=== PATIENT | male | born 1955 | race African-American/Black ===

== ENCOUNTER 2017-06-20 09:50 | Outpatient (CLI) | payer BC, OTHER | END 2017-06-20 09:51 | disposition home or self-care (01) | LOC: BICRAD 09:50 | PROVIDERS: ATTEND Family Medicine | DX: J32.9 Chronic sinusitis, unspecified (principal) | CPT/HCPCS: 71046 ==

== ENCOUNTER 2018-02-04 09:56 | Outpatient (CLI) | payer BC ==
--- NOTE | 2018-02-04 10:49 | RAD ---
TWO VIEWS OF THE CHEST: COMPARISON: 12/15/2005. HISTORY: Cough for 3 weeks. Bronchitis. FINDINGS: Two views of the chest show normal sized cardiomediastinal silhouette. There is no evidence of consol idation, mass, or pleural effusion. Degenerative changes are seen in the spine. IMPRESSION: No evidence of acute cardiopulmonary disease. POS: [facility]
== END 2018-02-04 09:57 | disposition home or self-care (01) ==
LOC: BICRAD 09:56
PROVIDERS: ATTEND Allergy & Immunology
DX: R05 Cough (principal)
CPT/HCPCS: 71046

== ENCOUNTER 2019-10-14 11:09 | Inpatient (IN) | payer BC, OTHER ==
[2019-10-14] MEDS ORDERED: Azithromycin 500 MG VIAL ONE (11:56)
[2019-10-14] MEDS ORDERED: Dexamethasone 4 mg/ml Vial ONE (11:56)
[2019-10-14 12:17] LABS: #Basophils 0.1 thou/uL (0.0-0.2); #Lymphocytes 0.3 thou/uL (1.20-3.40); #Monocytes 0.6 thou/uL (0.11-0.59); %Basophils 1.4 % (0.0-1.0); %Eosinophils 0.2 % (0.0-10.0); %Lymphocytes 4.2 % (21.0-51.0); %Monocytes 7.5 % (0.0-10.0); %Neutrophils 86.7 % (42.0-75.0); Hemoglobin 15.3 g/dL (14.0-18.0); Mean Corpuscular HGB CONC 33.4 g/dL (32.0-36.0); Mean Corpuscular Hemoglobin 34.9 pg (27.0-31.0); Mean Platelet Volume 6.9 fL (7.4-10.4); Platelet Count 185 thou/uL (130-400); RBC Distribution Width 12.2 % (11.5-14.5); Red Blood Cell (RBC) Count 4.39 mill/uL (4.70-6.10); White Blood Cell (WBC) Count 8.1 thou/uL (4.8-10.8)
[2019-10-14 12:25] LABS: Anion Gap 15 mmol/L (10-20); BUN (Urea Nitrogen) 17 mg/dL (8.4-25.7); Calc. Creatinine Clearance 0 mL/min (70-130); Carbon Dioxide 34 mmol/L (23-31); Chloride 87 mmol/L (98-107); Estimated GFR-MDRD 74; Sodium 134 mmol/L (136-145)
[2019-10-14 12:26] LABS: ALT (SGPT) 41 U/L (8-55); AST (SGOT) 50 U/L (5-34); Albumin 4.2 g/dL (3.4-4.8); Alkaline Phosphatase 41 U/L (40-110); Bilirubin, Total 0.6 mg/dL (0.2-1.2); Calcium 9.1 mg/dL (7.8-10.44); Globulin 3.9 g/dL (2.4-3.5); Glucose 163 mg/dL (80-115); Protein, Total 8.1 g/dL (5.8-8.1); Prothrombin Time 13.1 sec (12.0-14.7)
[2019-10-14 12:27] LABS: PTT 32.2 sec (22.9-36.1)
[2019-10-14 12:31] LABS: Potassium 2.4 mmol/L (3.5-5.1)
--- NOTE | 2019-10-14 12:39 | RAD ---
PORTABLE CHEST 1 VIEW: Date: 10/14/2019 Time: 1150 hours HISTORY: COVID-19 positive and shortness of breath. FINDINGS/IMPRESSION: Comparison made with exam of 10/12/2019. The heart size is stable. No lobar consolidation, pneumothoraces, chalino pulmonary edema, or large eff usions are seen. POS: [facility]
[2019-10-14 12:47] LABS: CKMB 1.3 ng/mL (0-6.6)
[2019-10-14] MEDS ORDERED: Potassium Chloride 20 MEQ TAB ONE (13:45)
[2019-10-14] MEDS ORDERED: cloNIDine 0.1 MG TAB PO PRN (15:25)
[2019-10-14] MEDS ORDERED: Ondansetron PF 4 MG/2 ML Vial IVP PRN (15:25)
[2019-10-14] MEDS ORDERED: hydrALAZINE 20 MG/ML VIAL SLOW IVP PRN (15:25)
[2019-10-14] MEDS ORDERED: Ondansetron ODT 4 MG TAB PO PRN (15:25)
[2019-10-14 15:45] VITALS: BMI 38.7
--- NOTE | 2019-10-14 17:33 | HP ---
PRIMARY CARE PHYSICIAN: Corby Claudio MD CHIEF COMPLAINT: Cough and shortness of breath. HISTORY OF PRESENT ILLNESS: Mr. Cox is a pleasant 64-year-old gentleman, who has a history of chronic bronchitis. He says that about a week ago or last , he started having symptoms of cough and wheezing and shortness of breath. He thought it was his bronchitis or allergies as he typically has this problem every year. His symptoms seem to get worse and then he started having some fever and as a result, he felt it was probably a good idea to get tested for COVID-19. He says he did get tested and the test did come back positive on Saturday. He says that he was quarantining at home, but then started having fever and he says the shortness of breath got progressively worse to the point where he could walk just a few feet and get extremely winded. He denies any chest pain. No abdominal pain, no nausea, no vomiting, no diarrhea, but as a result of the symptoms, he decided to come to the ER. He was found to be hypoxic on room air and chest x-ray was consistent with the findings typical of COVID pneumonia and he is being admitted for further evaluation. REVIEW OF SYSTEMS: All systems were reviewed and are negative except for that mentioned in the history of present illness. PAST MEDICAL HISTORY: Significant for hypertension, hyperlipidemia, and chronic bronchitis. PAST SURGICAL HISTORY: He says that he has had cataract surgery. ALLERGIES: NO KNOWN DRUG ALLERGIES. SOCIAL HISTORY: He is a nonsmoker and nondrinker. He denies any drug use. He is and would like to be a full code. FAMILY HISTORY: He said his mother had colon cancer. CURRENT MEDICATIONS: 1. Pravastatin 40 mg at bedtime. 2. Naprosyn 500 mg daily. 3. Lansoprazole 30 mg p.o. daily. 4. Terazosin 10 mg at bedtime. 5. Amlodipine 10 mg daily. 6. Spironolactone/hydrochlorothiazide 25/25 daily. 7. Promethazine with codeine 5 mL q.6h as needed. PHYSICAL EXAMINATION: GENERAL: He is awake and alert. He appears to be in no acute distress. He is well developed and well nourished. VITAL SIGNS: Blood pressure was 113/72, heart rate 107, respiratory rate of 18, temperature is 99.6, and O2 saturation was 88% on room air. HEENT: Pupils are equal, round, and reactive to light. Extraocular muscles are intact. His sclerae are anicteric. Throat, no erythema, no exudates. NECK: No adenopathy. No bruits. LUNGS: He has some rales, very fine crackles. No rhonchi. No wheezing. CARDIOVASCULAR: He has a normal S1 and S2. There is no S3 or S4. No murmurs, clicks, or rubs. ABDOMEN: Obese. It is soft, nontender, and nondistended. Positive for bowel sounds. No rebound. No guarding. EXTREMITIES: There is no clubbing or cyanosis. No edema. No calf tenderness. No joint effusions. NEUROLOGIC: Grossly nonfocal. SKIN AND INTEGUMENT: He does have some chronic venous stasis changes primarily on the left lower extremity with some thickening and darkening of the skin, but otherwise no other lesions. LABORATORY DATA: White blood cell count was 8.1, hemoglobin 15.3, hematocrit is 45.9, and platelet count was 185. INR is 1.0. Chemistry; sodium 134, potassium 2.4, chloride is 87, CO2 of 34, BUN of 17, creatinine 1.2, and glucose is 163. Troponin is 0.030. ASSESSMENT: This is a pleasant 64-year-old gentleman, who presents to the emergency room with acute hypoxic respiratory failure due to COVID-19 pneumonia. He also has hypokalemia as well. He will be admitted to the medical COVID unit, started on IV Decadron as well as azithromycin and Rocephin. I talked to him about the treatment called remdesivir and asked him would he be willing to try this if he were deemed a candidate. I did discuss that this is a medication that is being released for compassionate use and has not been FDA approved for this particular reason, but has been shown to have some efficacy and talked about the risk of liver and kidney injury, and he said he would be willing. We will also place monitor his inflammatory markers. 1. Hypokalemia. This will need to be replaced. I suspect this is possibly due to poor oral intake in addition to diuretic use. 2. The patient will be placed on deep venous thrombosis as well as gastrointestinal prophylaxis. Job ID: [id number]
[2019-10-14] MEDS: cefTRIAXone\\ROCEPHIN 1 GM in Sodium Chloride 0.9% 100 ML IVPB SCH (17:47)
[2019-10-14] MEDS: Benzonatate 100 MG CAP PO PRN (22:08)
[2019-10-15] MEDS: Benzonatate 100 MG CAP PO PRN ×3 (04:30→16:07)
[2019-10-15 06:17] LABS: #Lymphocytes 0.6 thou/uL (1.20-3.40); #Monocytes 0.6 thou/uL (0.11-0.59); #Neutrophils 4.7 thou/uL (1.40-6.50); %Basophils 0.1 % (0.0-1.0); %Lymphocytes 10.4 % (21.0-51.0); %Monocytes 9.4 % (0.0-10.0); %Neutrophils 80.1 % (42.0-75.0); Hemoglobin 14.4 g/dL (14.0-18.0); Mean Corpuscular HGB CONC 32.4 g/dL (32.0-36.0); Mean Corpuscular Hemoglobin 33.7 pg (27.0-31.0); Mean Platelet Volume 6.9 fL (7.4-10.4); Platelet Count 191 thou/uL (130-400); RBC Distribution Width 12.2 % (11.5-14.5); Red Blood Cell (RBC) Count 4.28 mill/uL (4.70-6.10); White Blood Cell (WBC) Count 5.8 thou/uL (4.8-10.8)
[2019-10-15 06:43] LABS: ALT (SGPT) 41 U/L (8-55); AST (SGOT) 48 U/L (5-34); Albumin 3.9 g/dL (3.4-4.8); Alkaline Phosphatase 38 U/L (40-110); Anion Gap 15 mmol/L (10-20); BUN (Urea Nitrogen) 16 mg/dL (8.4-25.7); Bilirubin, Total 0.4 mg/dL (0.2-1.2); CRP (Inflammatory) 8.38 mg/dL (= or < 0.5); Calc. Creatinine Clearance 166 mL/min (70-130); Calcium 9.2 mg/dL (7.8-10.44); Carbon Dioxide 35 mmol/L (23-31); Chloride 92 mmol/L (98-107); Estimated GFR-MDRD Greater than 90; Globulin 3.9 g/dL (2.4-3.5); Glucose 129 mg/dL (80-115); Protein, Total 7.8 g/dL (5.8-8.1); Sodium 139 mmol/L (136-145)
[2019-10-15 06:46] LABS: Potassium 2.5 mmol/L (3.5-5.1)
[2019-10-15] MEDS ORDERED: Potassium Chloride 20 MEQ TAB PO SCH ×3 (07:30→19:00)
[2019-10-15] MEDS: Enoxaparin Sodium 40 MG/0.4 ML SYRINGE SC SCH (08:06)
[2019-10-15] MEDS: Dexamethasone 4 mg/ml Vial SLOW IVP SCH (08:07)
[2019-10-15] MEDS: Azithromycin 500 MG in Sodium Chloride 0.9% 250 ML 250 ML IVPB SCH (11:13)
[2019-10-15 14:11] LABS: Potassium 2.9 mmol/L (3.5-5.1)
[2019-10-15] MEDS: cefTRIAXone\\ROCEPHIN 1 GM in Sodium Chloride 0.9% 100 ML IVPB SCH (15:00)
--- NOTE | 2019-10-15 17:40 | PDOC.HOSPP ---
- Subjective Encounter Date: 10/15/19 Encounter Time: 16:15 Subjective: Mr Cox is seen this afternoon as a follow up for a positive Covid test and hypoxia. He says he is feeling somewhat better except for the persistent cough. He denies any chest pain. Has some shortness of breath with exertion and his oxygen demands increased to have him at 4L NC. - Objective Vital Signs & Weight: Vital Signs (12 hours) Temp Pulse Resp BP Pulse Ox 10/15/19 16:00 98.4 F 82 18 112/78 92 L 10/15/19 12:42 98 F 73 16 124/71 91 L 10/15/19 08:00 98.2 F 92 18 121/76 91 L Weight Weight 318 lb 12.8 oz I&O: 10/14/19 10/15/19 10/16/19 06:59 06:59 06:59 Intake Total 1000 Balance 1000 Result Diagrams: 10/15/19 05:50 10/15/19 13:39 Hospitalist ROS - Medication Medications: Active Medications Generic Name Dose Route Start Last Admin Trade Name Freq PRN Reason Stop Dose Admin Benzonatate 100 mg 10/14/19 15:25 10/15/19 16:07 Tessalon PO 100 mg Q6H PRN Administration Cough Dexamethasone 6 mg 10/15/19 09:00 10/15/19 08:07 Decadron SLOW IVP 6 mg DAILY KIMBERLYN Administration Enoxaparin Sodium 40 mg 10/15/19 09:00 10/15/19 08:06 Lovenox SC 40 mg 0900 KIMBERLYN Administration Azithromycin 500 mg/ Sodium 250 mls @ 250 mls/hr 10/15/19 12:00 10/15/19 11: 13 Chloride IVPB 250 mls 1200 KIMBERLYN Administration Ceftriaxone Sodium 1 gm/ 100 mls @ 200 mls/hr 10/14/19 16:00 10/15/19 15:00 Sodium Chloride IVPB 100 mls 1600 KIMBERLYN Administration Pantoprazole Sodium 40 mg 10/15/19 09:00 10/15/19 08:07 Protonix PO 40 mg DAILY KIMBERLYN Administration - Exam General Appearance: NAD, awake alert Eye: PERRL Neck: supple, symmetric, no JVD Heart: RRR, no murmur, no gallops, no rubs Respiratory: CTAB, no wheezes, no rales, no ronchi Gastrointestinal: soft, non-tender, non-distended, normal bowel sounds Psychiatric: normal affect, normal behavior Hosp A/P (1) COVID-19 virus detected Code(s): U07.1 - COVID-19 Status: Acute (2) Hypoxia Code(s): R09.02 - HYPOXEMIA Status: Acute (3) Hypokalemia Code(s): E87.6 - HYPOKALEMIA Status: Acute - Plan Covid positive:Continue Remdesivir, Azithromax and Dexamethasone. Hypoxia: CTAB, on 4L NC, no acute distress, continue monitoring oxygen needs Hypokalemia: potassium replaced, will reheck potassium again in a few hours Patient pleased with his progress, prn antitussives available if needed for cough
[2019-10-15] MEDS ORDERED: Magnesium 2 GM/50 ML 2 GM in Premix Bag 1 BAG IVPB SCH (19:00)
[2019-10-16] MEDS: Benzonatate 100 MG CAP PO PRN ×3 (04:56→19:52)
[2019-10-16 05:45] LABS: #Lymphocytes 0.9 thou/uL (1.20-3.40); #Monocytes 0.6 thou/uL (0.11-0.59); #Neutrophils 5.7 thou/uL (1.40-6.50); %Basophils 0.1 % (0.0-1.0); %Eosinophils 0.2 % (0.0-10.0); %Lymphocytes 12.8 % (21.0-51.0); %Monocytes 8.4 % (0.0-10.0); %Neutrophils 78.6 % (42.0-75.0); Hemoglobin 14.9 g/dL (14.0-18.0); Mean Corpuscular HGB CONC 31.6 g/dL (32.0-36.0); Mean Corpuscular Hemoglobin 33.4 pg (27.0-31.0); Mean Platelet Volume 6.7 fL (7.4-10.4); Platelet Count 223 thou/uL (130-400); RBC Distribution Width 12.3 % (11.5-14.5); Red Blood Cell (RBC) Count 4.47 mill/uL (4.70-6.10); White Blood Cell (WBC) Count 7.3 thou/uL (4.8-10.8)
[2019-10-16 06:03] LABS: ALT (SGPT) 52 U/L (8-55); AST (SGOT) 48 U/L (5-34); Albumin 3.8 g/dL (3.4-4.8); Alkaline Phosphatase 41 U/L (40-110); Anion Gap 11 mmol/L (10-20); BUN (Urea Nitrogen) 16 mg/dL (8.4-25.7); Bilirubin, Total 0.4 mg/dL (0.2-1.2); CRP (Inflammatory) 6.97 mg/dL (= or < 0.5); Calc. Creatinine Clearance 175 mL/min (70-130); Carbon Dioxide 36 mmol/L (23-31); Chloride 96 mmol/L (98-107); Estimated GFR-MDRD Greater than 90; Globulin 3.8 g/dL (2.4-3.5); Glucose 117 mg/dL (80-115); Magnesium 2.2 mg/dL (1.6-2.6); Protein, Total 7.6 g/dL (5.8-8.1); Sodium 140 mmol/L (136-145)
[2019-10-16 06:12] LABS: Potassium 2.9 mmol/L (3.5-5.1)
[2019-10-16] MEDS ORDERED: Potassium Chloride 20 MEQ TAB PO SCH (07:00)
[2019-10-16] MEDS: Potassium Chloride 20 MEQ TAB PO SCH ×2 (08:40→17:15)
[2019-10-16] MEDS: Enoxaparin Sodium 40 MG/0.4 ML SYRINGE SC SCH (08:41)
[2019-10-16] MEDS: Dexamethasone 4 mg/ml Vial SLOW IVP SCH (08:41)
[2019-10-16] MEDS: Acetaminophen 325 MG TAB PO PRN ×2 (09:08→19:52)
[2019-10-16] MEDS: Azithromycin 500 MG in Sodium Chloride 0.9% 250 ML 250 ML IVPB SCH (11:09)
--- NOTE | 2019-10-16 14:34 | PDOC.HOSPP ---
- Subjective Encounter Date: 10/16/19 Encounter Time: 11:00 Subjective: breathing better but still has dry cough is needing nasal canula Oxygen has exertional sob - Objective Vital Signs & Weight: Vital Signs (12 hours) Temp Pulse Resp BP Pulse Ox 10/16/19 11:24 98.8 F 91 20 107/69 96 10/16/19 09:00 100.7 F H 119 H 18 115/74 92 L 10/16/19 04:00 99.1 F 97 18 112/68 92 L Weight Weight 318 lb 12.8 oz I&O: 10/15/19 10/16/19 10/17/19 06:59 06:59 06:59 Intake Total 1350 Balance 1350 Result Diagrams: 10/16/19 05:26 10/16/19 05:26 Hospitalist ROS - Medication Medications: Active Medications Generic Name Dose Route Start Last Admin Trade Name Freq PRN Reason Stop Dose Admin Acetaminophen 650 mg 10/14/19 15:25 10/16/19 09:08 Tylenol PO 650 mg Q4H PRN Administration Headache/Fever/Mild Pain (1-3) Benzonatate 100 mg 10/14/19 15:25 10/16/19 11:09 Tessalon PO 100 mg Q6H PRN Administration Cough Dexamethasone 6 mg 10/15/19 09:00 10/16/19 08:41 Decadron SLOW IVP 6 mg DAILY KIMBERLYN Administration Enoxaparin Sodium 40 mg 10/15/19 09:00 10/16/19 08:41 Lovenox SC 40 mg 0900 KIMBERLYN Administration Azithromycin 500 mg/ Sodium 250 mls @ 250 mls/hr 10/15/19 12:00 10/16/19 11: 09 Chloride IVPB 250 mls 1200 KIMBERLYN Administration Ceftriaxone Sodium 1 gm/ 100 mls @ 200 mls/hr 10/14/19 16:00 10/15/19 15:00 Sodium Chloride IVPB 100 mls 1600 KIMBERLYN Administration Remdesivir 100 Mg In 250 mls @ 250 mls/hr 10/15/19 18:30 10/15/19 17:41 Sodium Chloride 0.9 IV 10/18/19 19:29 250 mls % 230 Ml Q24H KIMBERLYN Administration Pantoprazole Sodium 40 mg 10/15/19 09:00 10/16/19 08:41 Protonix PO 40 mg DAILY KIMBERLYN Administration Potassium Chloride 40 meq 10/16/19 08:00 10/16/19 08:40 K-Dur PO 40 meq BID-WM KIMBERLYN Administration - Exam General Appearance: awake alert Eye: PERRL, anicteric sclera ENT: no oropharyngeal lesions, moist mucosa Neck: supple, no JVD Heart: RRR, no murmur Respiratory: no wheezes, no rales, rhonchi Gastrointestinal: soft, non-tender, non-distended, normal bowel sounds Extremities: no cyanosis, no edema Neurological: cranial nerve grossly intact, no focal deficits Psychiatric: normal affect, A&O x 3 Hosp A/P (1) Pneumonia due to COVID-19 virus Code(s): U07.1 - COVID-19; J12.89 - OTHER VIRAL PNEUMONIA Status: Acute (2) Acute respiratory failure with hypoxia Code(s): J96.01 - ACUTE RESPIRATORY FAILURE WITH HYPOXIA Status: Acute (3) Obesity Code(s): E66.9 - OBESITY, UNSPECIFIED Status: Chronic Qualifiers: Obesity classification: adult class 2 (BMI 35 - 39.9) Body mass index: BMI 38.0-38.9 - Plan is on remdesivir, steroids and nasal canula O2 nebs, may dc antibiotics to lie down either prone or onto lateral sides will get cxr in am prognosis guarded
[2019-10-16] MEDS: Albuterol 200 PUFF (6.7GM INHALER) INH SCH (18:44)
[2019-10-17] MEDS: Albuterol 200 PUFF (6.7GM INHALER) INH SCH ×4 (00:24→18:11)
[2019-10-17 05:20] LABS: #Lymphocytes 0.8 thou/uL (1.20-3.40); #Monocytes 0.6 thou/uL (0.11-0.59); %Eosinophils 0.2 % (0.0-10.0); %Lymphocytes 9.8 % (21.0-51.0); Hemoglobin 14.6 g/dL (14.0-18.0); Mean Corpuscular HGB CONC 32.5 g/dL (32.0-36.0); Mean Corpuscular Hemoglobin 34.5 pg (27.0-31.0); Mean Platelet Volume 6.8 fL (7.4-10.4); Platelet Count 237 thou/uL (130-400); RBC Distribution Width 12.3 % (11.5-14.5); Red Blood Cell (RBC) Count 4.25 mill/uL (4.70-6.10); White Blood Cell (WBC) Count 8.5 thou/uL (4.8-10.8)
[2019-10-17 05:37] LABS: ALT (SGPT) 43 U/L (8-55); AST (SGOT) 37 U/L (5-34); Albumin 3.7 g/dL (3.4-4.8); Alkaline Phosphatase 40 U/L (40-110); Anion Gap 14 mmol/L (10-20); BUN (Urea Nitrogen) 13 mg/dL (8.4-25.7); Bilirubin, Total 0.5 mg/dL (0.2-1.2); CRP (Inflammatory) 10.12 mg/dL (= or < 0.5); Calc. Creatinine Clearance 180 mL/min (70-130); Calcium 8.6 mg/dL (7.8-10.44); Carbon Dioxide 31 mmol/L (23-31); Chloride 99 mmol/L (98-107); Estimated GFR-MDRD Greater than 90; Globulin 3.8 g/dL (2.4-3.5); Glucose 118 mg/dL (80-115); Protein, Total 7.5 g/dL (5.8-8.1); Sodium 141 mmol/L (136-145)
[2019-10-17 05:41] LABS: Potassium 2.9 mmol/L (3.5-5.1)
[2019-10-17] MEDS ORDERED: Potassium Chloride 40 MEQ in Sodium Chloride 0.9% 250 ML 250 ML IVPB SCH (06:30)
[2019-10-17] MEDS: Enoxaparin Sodium 40 MG/0.4 ML SYRINGE SC SCH (07:47)
[2019-10-17] MEDS: Benzonatate 100 MG CAP PO PRN ×2 (07:48→16:44)
[2019-10-17] MEDS: Potassium Chloride 20 MEQ TAB PO SCH ×2 (07:48→16:44)
[2019-10-17] MEDS: Dexamethasone 4 mg/ml Vial SLOW IVP SCH (07:48)
--- NOTE | 2019-10-17 12:33 | PDOC.HOSPP ---
- Subjective Encounter Date: 10/17/19 Encounter Time: 10:00 Subjective: cough is slightly better, its mostly dry is amb in room, is lying down on lateral sides now - Objective Vital Signs & Weight: Vital Signs (12 hours) Temp Pulse Resp BP BP Pulse Ox 10/17/19 07:50 98.3 F 102 H 20 146/78 H 92 L 10/17/19 04:28 98.9 F 90 20 138/85 92 L Weight Weight 318 lb 12.8 oz I&O: 10/16/19 10/17/19 10/18/19 06:59 06:59 06:59 Intake Total 1350 1280 Balance 1350 1280 Result Diagrams: 10/17/19 04:48 10/17/19 04:48 Hospitalist ROS - Medication Medications: Active Medications Generic Name Dose Route Start Last Admin Trade Name Freq PRN Reason Stop Dose Admin Acetaminophen 650 mg 10/14/19 15:25 10/16/19 19:52 Tylenol PO 650 mg Q4H PRN Administration Headache/Fever/Mild Pain (1-3) Albuterol Sulfate 2 puff 10/16/19 19:00 10/17/19 06:43 Proventil Hfa INH 2 puff [id number] KIMBERLYN Administration Benzonatate 100 mg 10/14/19 15:25 10/17/19 07:48 Tessalon PO 100 mg Q6H PRN Administration Cough Dexamethasone 6 mg 10/15/19 09:00 10/17/19 07:48 Decadron SLOW IVP 6 mg DAILY KIMBERLYN Administration Enoxaparin Sodium 40 mg 10/15/19 09:00 10/17/19 07:47 Lovenox SC 40 mg 09 KIMBERLYN Administration Remdesivir 100 Mg In 250 mls @ 250 mls/hr 10/15/19 18:30 10/16/19 17:15 Sodium Chloride 0.9 IV 10/18/19 19:29 250 mls % 230 Ml Q24H KIMBERLYN Administration Pantoprazole Sodium 40 mg 10/15/19 09:00 10/17/19 07:48 Protonix PO 40 mg DAILY KIMBERLYN Administration Potassium Chloride 40 meq 10/16/19 08:00 10/17/19 07:48 K-Dur PO 40 meq BID-WM KIMBERLYN Administration - Exam General Appearance: awake alert Eye: PERRL, anicteric sclera ENT: no oropharyngeal lesions, moist mucosa Neck: supple, no JVD Heart: RRR, no murmur Respiratory: no wheezes, no rales, rhonchi Gastrointestinal: soft, non-tender, non-distended, normal bowel sounds Extremities: no cyanosis, no edema Neurological: cranial nerve grossly intact, no focal deficits Psychiatric: normal affect, A&O x 3 Hosp A/P (1) Pneumonia due to COVID-19 virus Code(s): U07.1 - COVID-19; J12.89 - OTHER VIRAL PNEUMONIA Status: Acute (2) Acute respiratory failure with hypoxia Code(s): J96.01 - ACUTE RESPIRATORY FAILURE WITH HYPOXIA Status: Acute (3) Obesity Code(s): E66.9 - OBESITY, UNSPECIFIED Status: Chronic Qualifiers: Obesity classification: adult class 2 (BMI 35 - 39.9) Body mass index: BMI 38.0-38.9 - Plan is on remdesivir, steroids and nasal canula O2 nebs to lie down either prone or onto lateral sides cxr today dc plan likely after completing remdesivr, will need home O2 for dc prognosis guarded
--- NOTE | 2019-10-17 13:48 | RAD ---
EXAM: CHEST ONE VIEW, PORTABLE: 10/17/19 HISTORY: Follow-up COVID-19 pneumonia. COMPARISON: 10/14/19. FINDINGS: Progressive bilateral alveolar and ground glass opacity changes bilaterally including the right upper lobe, right lower lobe, and left mid and lower lung zones evidence for worsening pneumonia. IMPRESSION: Evidence for worsening bilateral COVID-19 pneumonia. POS: [facility]
--- NOTE | 2019-10-17 17:36 | CON ---
DATE OF CONSULTATION: 10/17/2019 REASON FOR CONSULTATION: COVID pneumonia. HISTORY OF PRESENT ILLNESS: A 64-year-old with history of hyperlipidemia, obesity, hypertension, who for about 7 days before admission developed cough, fever, generalized malaise, weakness. He called his doctor, had a test for COVID, which was positive this past Saturday, 4 days before admission, who was sent home, but deteriorated and on Saturday, came back, was admitted at this time. PHYSICAL EXAMINATION: VITAL SIGNS: Initial findings, BP 113/72, pulse 107, respiratory rate 18, temperature 99.6, O2 saturations were 88 on room air and 94 on 3L oxygen. GENERAL: The patient was oriented, nontoxic. RESPIRATORY: Showed clear breath sounds as described in the note by the ER physician. No wheezing or crackles. Remainder of the examination was not remarkable. LABORATORY DATA: Initial findings also included white cell count 8.1, hemoglobin 15, platelets 185 with 86% neutrophils. Total lymphocyte of 300. D-dimer 0.27 and sodium 134, potassium 2.4, creatinine 1.2, AST 50, albumin 4.2. Initial ferritin was 7300 and initial CRP was 8.38. He had diffuse bilateral infiltrates. He has been started on Decadron and Remdesivir. He is feeling a little better now. Denies headaches, still short of breath at the slightest movement, intermittent coughing spells, not as frequent as before. No chest pain. No sputum production. No abdominal pain or diarrhea. No genitourinary symptoms. No joint symptoms or skin disorder. PAST MEDICAL HISTORY: Hyperlipidemia, hypertension, obesity, degenerative joint disease, anal fissure. SOCIAL HISTORY: Retired. Never smoker. ALLERGIES: NONE. MEDICATIONS: 1. Pravachol. 2. Naproxen. 3. Lansoprazole. 4. Terazosin. 5. Norvasc. 6. Spironolactone. 7. Hydrochlorothiazide. 8. Augmentin. 9. Promethazine. 10. Currently, he is also on Decadron, Remdesivir protocol. Today is the third day. PHYSICAL EXAMINATION: VITAL SIGNS: T-max 100.7 yesterday and is now 98.4. O2 sats started 92 and they are around 90 and 93 on nasal cannula O2 at 4 L. It has been at 4L since admission. His BP 130/80. He is breathing anywhere from 20-26 per minute. SKIN: Exam shows some evidence of stasis dermatitis, peripheral IV access. No Goodrich catheter. No lymphadenopathy. HEENT: Not remarkable. NECK: Supple. LUNGS: With a few inspiratory crackles and scattered areas in the lower segments of right and left lungs. HEART: S1, S2. Regular rate without murmurs. ABDOMEN: Slightly distended, but not tender, soft. No ascites or organomegaly. No genital abnormalities. EXTREMITIES: Osteoarthrosis in knees and ankles. No edema. Pulses 1+ dorsalis pedis. Plantar responses are flexor. NEUROLOGICAL: Nonfocal. Cognitive function appears to be intact. LABORATORY DATA: The latest values of labs, sodium 141, potassium 2.9. Transaminases, mild elevation of AST. The ferritin is down to 5700. CRP is up to 10 and D-dimer is stable at 0.27. ASSESSMENT: Hyperlipidemia, obesity, hypertension with COVID pneumonia, severe. Continue Remdesivir protocol, enoxaparin and dexamethasone oxygen supplementation. Monitor inflammatory markers and D-dimer. Job ID: [id number]
[2019-10-17] MEDS: Acetaminophen 325 MG TAB PO PRN (21:17)
[2019-10-18] MEDS: Albuterol 200 PUFF (6.7GM INHALER) INH SCH ×4 (01:10→19:16)
[2019-10-18 06:20] LABS: Band 1 % (5-11); Hemoglobin 15.6 g/dL (14.0-18.0); Hypochromia SLIGHT = 6-15 cells (100X) (0-5/hpf); Lymphocytes 16 % (21-51); MDiff Complete? YES; Macrocytosis SLIGHT = 6-15 cells (100X) (0-5/hpf); Mean Corpuscular HGB CONC 33.4 g/dL (32.0-36.0); Mean Corpuscular Hemoglobin 35.6 pg (27.0-31.0); Mean Platelet Volume 6.9 fL (7.4-10.4); Monocytes 6 % (0-10); Neutrophil 77 % (42-75); Platelet Count 262 thou/uL (130-400); Platelet Morphology Comment Appears Adequate; RBC Distribution Width 12.4 % (11.5-14.5); Red Blood Cell (RBC) Count 4.38 mill/uL (4.70-6.10); White Blood Cell (WBC) Count 8.6 thou/uL (4.8-10.8)
[2019-10-18 06:22] LABS: ALT (SGPT) 42 U/L (8-55); AST (SGOT) 38 U/L (5-34); Albumin 3.8 g/dL (3.4-4.8); Alkaline Phosphatase 41 U/L (40-110); Anion Gap 16 mmol/L (10-20); BUN (Urea Nitrogen) 13 mg/dL (8.4-25.7); Bilirubin, Total 0.6 mg/dL (0.2-1.2); CRP (Inflammatory) 12.55 mg/dL (= or < 0.5); Calc. Creatinine Clearance 193 mL/min (70-130); Carbon Dioxide 29 mmol/L (23-31); Chloride 99 mmol/L (98-107); Estimated GFR-MDRD Greater than 90; Globulin 4.2 g/dL (2.4-3.5); Glucose 114 mg/dL (80-115); Potassium 3.6 mmol/L (3.5-5.1); Sodium 140 mmol/L (136-145)
[2019-10-18] MEDS: Potassium Chloride 20 MEQ TAB PO SCH ×2 (07:48→16:49)
[2019-10-18] MEDS: Benzonatate 100 MG CAP PO PRN ×3 (07:48→20:36)
[2019-10-18] MEDS: Enoxaparin Sodium 40 MG/0.4 ML SYRINGE SC SCH (07:48)
[2019-10-18] MEDS: Dexamethasone 4 mg/ml Vial SLOW IVP SCH (07:48)
[2019-10-18] MEDS: Apixaban 5 MG TAB PO SCH ×2 (09:11→20:36)
--- NOTE | 2019-10-18 15:31 | DIS ---
DATE OF ADMISSION: 10/14/2019 DATE OF DISCHARGE: 10/18/2019 DISCHARGE DISPOSITION: To home. PRIMARY DISCHARGE DIAGNOSIS: COVID-19 pneumonia with acute respiratory failure with hypoxia on 3 L nasal cannula. SECONDARY DISCHARGE DIAGNOSES: Obesity, benign prostatic hypertrophy, dyslipidemia, gastroesophageal reflux disease, hypertension. PROCEDURES DONE DURING HOSPITALIZATION: The patient has had chest x-ray done, which showed bilateral patchy infiltrates consistent with COVID-19 pneumonia. Blood cultures x2, no growth. Hemoglobin and hematocrit 15 and 46, platelet count 262. PT, INR and PTT within normal limits. Serial D-dimer peaked up to 0.42. Ferritin initially was 7316, discharge ferritin is 5452. CRP was 8.38 on admission, at discharge is 12.5, BUN 13, creatinine 0.7, AST 38, ALT 42, alkaline phosphatase 41, total bilirubin 0.6. DISCHARGE MEDICATIONS: 1. Dexamethasone 6 mg p.o. daily for another six days. 2. Lansoprazole 30 mg p.o. daily. 3. Eliquis 5 mg p.o. twice daily for a total of 15 days to prevent thrombotic complications with COVID-19 virus. 4. Albuterol inhaler q.6 hourly p.r.n. 5. Norvasc 10 mg p.o. daily. 6. Pravastatin 40 mg p.o. at bedtime. 7. Terazosin 10 mg p.o. daily. 8. Tessalon Perles 100 mg p.o. 3 times daily p.r.n. ALLERGIES: NO KNOWN DRUG ALLERGIES. INPATIENT CONSULT: Dr. Osorio for Infectious Disease. DISCHARGE PLAN: The patient to follow up with primary care physician in 1 week. BRIEF COURSE DURING HOSPITALIZATION: The patient initially got admitted on 13 of October with complaints of dry cough and shortness of breath. He has had COVID-19 test done on Saturday prior to arrival here, which was positive. His chest x-ray and clinical exam were consistent with COVID-19 pneumonia along with acute hypoxic respiratory failure. He was placed on oxygen by nasal cannula. He has had four doses of remdesivir and the patient was also on dexamethasone 6 mg IV daily. The patient is wanting to go home today. He was given prescriptions for Eliquis for 2 weeks to prevent thrombotic complications along with dexamethasone for 6 days and albuterol inhaler. The patient has been advised to call EMS if he were to decompensate at home including any new complaints along with shortness of breath. Case Management consultation was requested for home oxygen arrangement. Please note, I have seen and examined the patient on the day of discharge. He is otherwise hemodynamically stable. He is eating well. He is also advised to sleep on the lateral side as he cannot sleep prone due to big belly. Job ID: [id number]
[2019-10-18] MEDS: Acetaminophen 325 MG TAB PO PRN (21:37)
[2019-10-19] MEDS: Albuterol 200 PUFF (6.7GM INHALER) INH SCH ×3 (01:30→12:27)
[2019-10-19 06:09] LABS: ALT (SGPT) 40 U/L (8-55); AST (SGOT) 32 U/L (5-34); Albumin 3.8 g/dL (3.4-4.8); Alkaline Phosphatase 41 U/L (40-110); Anion Gap 14 mmol/L (10-20); BUN (Urea Nitrogen) 13 mg/dL (8.4-25.7); Bilirubin, Total 0.8 mg/dL (0.2-1.2); CRP (Inflammatory) 19.26 mg/dL (= or < 0.5); Calc. Creatinine Clearance 177 mL/min (70-130); Calcium 9.2 mg/dL (7.8-10.44); Carbon Dioxide 32 mmol/L (23-31); Chloride 99 mmol/L (98-107); Estimated GFR-MDRD Greater than 90; Globulin 4.1 g/dL (2.4-3.5); Glucose 123 mg/dL (80-115); Potassium 3.5 mmol/L (3.5-5.1); Protein, Total 7.9 g/dL (5.8-8.1); Sodium 141 mmol/L (136-145)
[2019-10-19 06:14] LABS: Band 19 % (5-11); Eosinophils 1 % (0-10); Hemoglobin 15.2 g/dL (14.0-18.0); Lymphocytes 7 % (21-51); MDiff Complete? YES; Mean Corpuscular Hemoglobin 33.1 pg (27.0-31.0); Mean Platelet Volume 6.9 fL (7.4-10.4); Monocytes 5 % (0-10); Neutrophil 68 % (42-75); Platelet Count 321 thou/uL (130-400); Platelet Morphology Comment Appears Adequate; RBC Distribution Width 12.6 % (11.5-14.5); White Blood Cell (WBC) Count 8.7 thou/uL (4.8-10.8)
[2019-10-19] MEDS: Apixaban 5 MG TAB PO SCH (07:48)
[2019-10-19] MEDS: Dexamethasone 4 mg/ml Vial SLOW IVP SCH (07:48)
[2019-10-19] MEDS: Potassium Chloride 20 MEQ TAB PO SCH (07:48)
[2019-10-19 08:51] VITALS: BP 115/81; TEMP 99.6
--- NOTE | 2019-10-19 09:29 | PDOC.HOSPP ---
- Subjective Encounter Date: 10/19/19 Encounter Time: 11:30 Subjective: Patient was being discharged on home O2 yesterday at his request. Became more tachypneic into the 30s last night with tachycardia. Didn't feel bad or SOB but was convinced to stay overnight to be observed. Tachypnea improved today, now in low 20s, no increase WOB on my exam, and tachycardia intermitent in low 100s. Patient determined to go home. States he understands the risks of Covid possibly deteriorating in the future but would like to try managing this at home. Agreed to return to the ER immediately should his symptoms worsen. - Objective Vital Signs & Weight: Vital Signs (12 hours) Temp Pulse Resp BP BP Pulse Ox 10/19/19 08:00 99.6 F 115 H 24 H 115/81 98 10/19/19 04:15 98.8 F 106 H 26 H 128/73 94 L 10/18/19 23:47 99.1 F 114 H 26 H 129/74 94 L 10/18/19 21:40 120 H 36 H 90 L Weight Weight 318 lb 12.8 oz I&O: 10/18/19 10/19/19 10/20/19 06:59 06:59 06:59 Intake Total 610 Output Total 250 Balance 360 Result Diagrams: 10/19/19 05:34 10/19/19 05:34 Hospitalist ROS - Review of Systems Constitutional: denies: fever, chills Respiratory: reports: cough. denies: shortness of breath, SOB with excertion Cardiovascular: denies: chest pain, palpitations, orthopnea Gastrointestinal: denies: nausea, vomiting, abdominal pain Neurological: denies: weakness - Medication Medications: Active Medications Generic Name Dose Route Start Last Admin Trade Name Freq PRN Reason Stop Dose Admin Acetaminophen 650 mg 10/14/19 15:25 10/18/19 21:37 Tylenol PO 650 mg Q4H PRN Administration Headache/Fever/Mild Pain (1-3) Albuterol Sulfate 2 puff 10/16/19 19:00 10/19/19 07:48 Proventil Hfa INH 2 puff [id number] KIMBERLYN Administration Apixaban 5 mg 10/18/19 09:00 10/19/19 07:48 Eliquis PO 5 mg BID KIMBERLYN Administration Benzonatate 100 mg 10/14/19 15:25 10/18/19 20:36 Tessalon PO 100 mg Q6H PRN Administration Cough Pantoprazole Sodium 40 mg 10/15/19 09:00 10/19/19 07:48 Protonix PO 40 mg DAILY KIMBERLYN Administration Potassium Chloride 40 meq 10/16/19 08:00 10/19/19 07:48 K-Dur PO 40 meq BID-WM KIMBERLYN Administration - Exam General Appearance: NAD, awake alert ENT: moist mucosa Neck: supple Heart: RRR, no murmur, no gallops, no rubs Heart - other findings: mild tachycardia Respiratory: CTAB, no wheezes, no rales, no ronchi Respiratory - other findings: no increased WOB or tachypnea on my exam Gastrointestinal: soft, non-tender, non-distended, normal bowel sounds Psychiatric: normal affect, normal behavior, A&O x 3 Hosp A/P (1) Acute respiratory failure with hypoxia Code(s): J96.01 - ACUTE RESPIRATORY FAILURE WITH HYPOXIA Status: Acute (2) Pneumonia due to COVID-19 virus Code(s): U07.1 - COVID-19; J12.89 - OTHER VIRAL PNEUMONIA Status: Acute (3) Obesity Code(s): E66.9 - OBESITY, UNSPECIFIED Status: Chronic Qualifiers: Obesity classification: adult class 2 (BMI 35 - 39.9) Body mass index: BMI 38.0-38.9 - Plan finished remdesivir, on steroids and nasal canula O2 nebs to lie down either prone or onto lateral sides patient will be discharged home on home O2, needs to follow up with PCP or respiratory clinic in 1 week
[2019-10-19] MEDS ORDERED: Dexamethasone 4 MG TAB PO SCH (09:30)
[2019-10-19] MEDS: Benzonatate 100 MG CAP PO PRN (09:48)
--- NOTE | 2019-10-19 20:44 | DIS ---
DATE OF ADMISSION: 10/14/2019 DATE OF DISCHARGE: 10/19/2019 PRIMARY CARE PHYSICIAN: Sri Mishra. REASON FOR ADMISSION: COVID pneumonia with hypoxia DIAGNOSES AT DISCHARGE: 1. Acute respiratory failure with hypoxia. 2. Pneumonia due to COVID-19 virus. 3. Obesity. PROCEDURES: None. CONSULTATION: Infectious Disease, Dr. Osorio. SUMMARY OF HOSPITAL COURSE: This is a 64-year-old male with a history of chronic bronchitis, who presented after testing positive for COVID-19 and having worsening shortness of breath and was found to be hypoxic in the emergency room, was admitted to the hospital, was given steroids, was given azithromycin and was eventually given a course of treatment of remdesivir. The patient was stable in the hospital. During hospitalization, he continued to require 4 L of nasal cannula, but did not have any shortness of breath on that. He had persistent, but stable cough. The patient eventually requested that he would like to go home. We were able to set up home oxygen for him the day before discharge. He did develop some tachypnea in the evening, up to 40 breaths per minute, although he stated he did not have any shortness of breath and did not feel bad when he had it, and he was convinced to the stay overnight for further observation. He also had mild tachycardia in the low 100s. The patient's tachypnea improved. He was in the low 20s on the day of discharge. He has had no increased work of breathing, stated he did not feel short of breath and was eager to go home. We did discuss with him the risks of deterioration with COVID and he stated he would come immediately to the emergency room should he starts feeling worse. Also discussed with him that he should try and sleep laterally on his side or on his belly if he is able to. DISCHARGE MANAGEMENT: Discharged home. ACTIVITY: As tolerated. DIET: Healthy heart, low-sodium diet. EQUIPMENT: Supplies oxygen 4 L nasal cannula. FOLLOWUP: Follow up with primary care physician in 1 week. DISCHARGE MEDICATIONS: 1. Albuterol inhaler 2 puffs every 6 hours as needed, one inhaler dispensed. 2. Eliquis 5 mg twice a day for 2 weeks, 30 tablets dispensed. 3. Tessalon Perles as needed for cough, 30 capsules dispensed. 4. Dexamethasone 6 mg daily for six more days. 5. Lansoprazole 30 mg daily, 30 capsules dispensed. 6. Amlodipine 10 mg daily. 7. Pravastatin 40 mg at night. 8. Terazosin 10 mg daily. Arranging the details of this discharge took 35 minutes. Job ID: [id number]
[2019-10-20] MEDS ORDERED: Dexamethasone 4 MG TAB PO SCH (08:00)
--- NOTE | 2019-10-20 16:31 | EKG ---
Test Reason : Blood Pressure : / mmHG Vent. Rate : 107 BPM Atrial Rate : 107 BPM P-R Int : 156 ms QRS Dur : 104 ms QT Int : 362 ms P-R-T Axes : 031 -52 031 degrees QTc Int : 483 ms Sinus tachycardia Left atrial enlargement Left axis deviation Inferior infarct , age undetermined Abnormal ECG Confirmed by FLORENCE MOREJON, AVERY Biswas ([id number]), sound editor MARITO FRANCO ([id number]) on 10/20/2019 4:31:08 PM Referred By: Confirmed By:AVERY HENRIQUEZ MD
== END 2019-10-19 13:03 | disposition home or self-care (01) | DRG 177 ==
LOC: ERS 11:09 → T4-B 12:53
PROVIDERS: ADMIT Internal Medicine; ATTEND Internal Medicine
PROC: 8E0ZXY6 Isolation (ICD-10-PCS; principal; 2019-10-14)
DX: U07.1 COVID-19 (principal); J12.89 Other viral pneumonia; J96.01 Acute respiratory failure with hypoxia; E66.9 Obesity, unspecified; N40.0 Benign prostatic hyperplasia without lower urinary tract symptoms; E78.5 Hyperlipidemia, unspecified; K21.9 Gastro-esophageal reflux disease without esophagitis; I10 Essential (primary) hypertension; J42 Unspecified chronic bronchitis; E87.6 Hypokalemia; Z79.899 Other long term (current) drug therapy; Z68.38 Body mass index [BMI] 38.0-38.9, adult
CPT/HCPCS: 36415; 71045; 80053; 82553; 82728; 83605; 83735; 83880; 84484; 85025; 85379; 85610; 85730; 86140; 87040; 87635; 93005; 94760; 96361; 96365; 96375; J0456; J0696; J1100; J1650; J3475; J3480; J3490; J7050; J8540; U0003

== ENCOUNTER 2020-12-27 13:18 | Outpatient (CLI) | payer MEDICARE | END 2020-12-27 13:19 | disposition home or self-care (01) | LOC: BICRAD 13:18 | PROVIDERS: ATTEND Internal Medicine Pulmonary Disease | DX: R06.00 Dyspnea, unspecified (principal) | CPT/HCPCS: 71046 ==

== ENCOUNTER 2022-01-03 09:03 | Outpatient (CLI) | payer MEDICARE | END 2022-01-03 09:04 | disposition home or self-care (01) | LOC: RAD 09:03 | PROVIDERS: ATTEND Internal Medicine | DX: J42 Unspecified chronic bronchitis (principal) | CPT/HCPCS: 71046 ==

== ENCOUNTER 2022-08-07 09:00 | Outpatient (CLI) | payer MEDICARE ==
[2022-08-07] MEDS ORDERED: Iopamidol 370 76% 100 ML VIAL ONE (10:07)
== END 2022-08-07 09:01 | disposition home or self-care (01) ==
LOC: CT 09:00
PROVIDERS: ATTEND Family Medicine
DX: R82.998 Other abnormal findings in urine (principal); K86.89 Other specified diseases of pancreas; K76.89 Other specified diseases of liver; E27.8 Other specified disorders of adrenal gland
CPT/HCPCS: 74178; 82565; Q9967